=== PATIENT | female | born 2005 | race Two or more races ===

== ENCOUNTER 2025-05-18 22:49 | Emergency (ER) | payer SELFPAY ==
[2025-05-18 22:52] VITALS: BMI 21.1
[2025-05-18 22:55] VITALS: BP 124/79; PULSE 89; RESP 18; TEMP 37.1; O2SAT 98
--- NOTE | 2025-05-18 23:15 | EDNOTE_ITS ---
ED Headache RME/HPI General Chief Complaint: Headache Stated Complaint: HEADACHE DIZZINESS Time Seen by Provider: 05/18/25 23:14 Arrival date/time: 05/18/25 22:49 19F with no significant PMH presents to ED with several days of fatigue and dizziness, as well as 1 day of ELIZABETH. Patient denies URI symptoms. Limitations: no limitations Related Data Allergies Allergy/AdvReac Type Severity Reaction Status Date / Time No Known Allergies Allergy Verified 05/18/25 22:56 Review of Systems Review of Systems Systems Reviewed: All systems reviewed, normal except as documented Constitutional Constitutional: Reports as per HPI, Reports fatigue and Reports headache(s) ENT Ears, Nose, Mouth, and Throat: Reports as per HPI, Reports headache(s) and Reports vertigo Neurologic Neurologic: Reports headache(s) and Reports vertigo Endocrine Endocrine: Reports fatigue Past Medical History Social History SMOKING STATUS: Never smoker ED Exam General Limitations: Present no limitations General appearance: Present alert and in no apparent distress Head Head exam: Present atraumatic Eye Eye exam: Present normal appearance, PERRL and EOMI Neck Neck exam: Present normal inspection, full ROM and trachea midline Chest Chest inspection: Present normal inspection and symmetric chest wall rise Neurological Exam Neurological exam: Present alert, oriented X3 and CN II-XII intact Psychiatric Psychiatric exam: Present normal affect and normal mood Skin Skin exam: Present warm, dry, intact and normal color Course Quality Measures none Orders Category Date Time Status Meclizine HCl [Antivert] Med 05/18/25 23:14 Discontinued 25 mg PO X1 ONE Metoclopramide [Reglan] Med 05/18/25 23:14 Discontinued 5 mg PO X1 ONE Naproxen [Naprosyn] Med 05/18/25 23:14 Discontinued 500 mg PO X1 ONE Vital Signs Vital signs: Vital Signs Temperature 98.7 F 05/18/25 22:55 Pulse Rate 89 05/18/25 22:55 Respiratory Rate 18 05/18/25 22:55 Blood Pressure 124/79 05/18/25 22:55 Pulse Oximetry (%) 98 05/18/25 22:55 Oxygen Delivery Method Room Air 05/18/25 22:55 O2 at 98% on RA and WNLs Headache MDM Narrative MDM Narrative:: 19F with no significant PMH presents to ED with several days of fatigue and dizziness, as well as 1 day of ELIZABETH. Patient denies URI symptoms. Physical exam reveals normal pupil response and EOM. CN II-XII grossly intact. Gait normal. Speech normal. Normal WOB. Patient is afebrile, calm, and alert. Meds improved symptoms. Patient data External records reviewed:: None Clinical information provided by:: patient Social determinants that could affect healthcare access:: none Patient has the following chronic illnesses:: none How is presenting disease/condition affected by chronic disease/condition?: no chronic disease Evaluation data The following diagnostics were reviewed and interpreted by me:: other (specify) (none) Lab and/or radiology exams considered but not ordered:: not ordered Interpretation Summary: n/a Medications / Prescriptions Medications or Prescriptions considered but not ordered:: ordered Medication administrations:: Medication Administration History Discontinued Medications Meclizine HCl (Meclizine Hcl 25 Mg Tablet) 25 mg PO X1 ONE Stop: 05/18/25 23:15 Last Admin: 05/18/25 23:59 Dose: 25 mg Documented By: ELVIN Metoclopramide HCl (Metoclopramide 5 Mg Tablet) 5 mg PO X1 ONE Stop: 05/18/25 23:15 Last Admin: 05/18/25 23:59 Dose: 5 mg Documented By: ELVIN Naproxen (Naproxen 250 Mg Tablet) 500 mg PO X1 ONE Stop: 05/18/25 23:15 Last Admin: 05/18/25 23:59 Dose: 500 mg Documented By: ELVIN above Consultations Consultation(s) initiated? (list below): No Diagnosis Differential diagnosis headache: migraine, tension headache, subarachnoid hemorr maraielena, headache, meningitis, sinusitis, postconcussion syndrome and other (URI, dizziness) Most likely diagnosis given after review of the tests above:: ELIZABETH Admission Indicated Admission indicated?: not indicated Admission Request Was there a request for admission?: No Disposition Plan Disposition Plan: Discharge Discharge Attestation Discharge Attestation: The patient and all family members were given an opportunity to ask questions and understood the discharge instructions. Discharge instructions specifically effects, indications for sooner follow up or return to the emergency department, and the expected course of current diagnosis. Patient condition: Stable Discharge Plan Plan Patient Disposition: HOME (Self Care) Discharge Disposition comment: Stable Prescriptions/Referrals Referrals: No Primary/Family,Physician [Primary Care Provider] - In 1 week Problem List Clinical Impression: Headache Patient/Caregiver Discharge Instructions Education Materials: Self-Care for Headaches Additional Instructions: Please follow-up with PCP within 24-48 hours and return immediately if symptoms worsen. NSAIDs like ibuprofen tend to work better for this type of pain. Print Language: Marshallese Stand Alone Forms: Patient Portal Info Letter PA/DIRECTOR PROCESS ENGINEERING Supervising Physician PA/DIRECTOR PROCESS ENGINEERING Supervising Physician: Dr. Carlson
[2025-05-18] MEDS: METOCLOPRAMIDE 5 MG TABLET PO (23:59)
[2025-05-18] MEDS: NAPROXEN 250 MG TABLET 500 MG PO (23:59)
[2025-05-18] MEDS: MECLIZINE HCL 25 MG TABLET PO (23:59)
== END 2025-05-19 02:00 | disposition home or self-care (01) ==
PROVIDERS: Emergency Provider Emergency Medicine
DX: R51.9 Headache, unspecified (principal)
CPT/HCPCS: 99282; A9270